=== PATIENT | female | born 1945 | race Caucasian/White ===

== ENCOUNTER → 2022-01-06 | Outpatient (CLI) | payer OTHER | END | disposition home or self-care (01) | LOC: SONOGRAMA 09:48 | PROVIDERS: ATTEND Pathology Anatomic Pathology & Clinical Pathology | DX: E04.2 Nontoxic multinodular goiter (principal) ==

== ENCOUNTER 2022-01-30 07:22 | Outpatient (CLI) | payer OTHER | END 2022-01-30 07:24 | disposition home or self-care (01) | LOC: NUCLEAR 07:22 | PROVIDERS: ATTEND Internal Medicine | DX: R11.0 Nausea (principal) | CPT/HCPCS: 78264; A9541 ==

== ENCOUNTER 2023-01-19 16:19 | Outpatient (CLI) | payer OTHER | END 2023-01-19 16:24 | disposition home or self-care (01) | LOC: RAD 16:19 | DX: M54.59 Other low back pain (principal) ==

== ENCOUNTER 2023-01-27 09:33 | Outpatient (CLI) | payer OTHER | END 2023-01-27 09:38 | disposition home or self-care (01) | LOC: SONOGRAMA 09:33 | PROVIDERS: ATTEND Urology | DX: N39.0 Urinary tract infection, site not specified (principal); R31.0 Gross hematuria ==